=== PATIENT | female | born 1990 | race Caucasian/White ===

== ENCOUNTER 2018-04-05 12:58 | Emergency (ER) | payer BC ==
[~2018-04-05] VITALS: Ht 170.2 cm; Wt 63.6 kg
[2018-04-05 13:06] VITALS: TEMP 99.3
[2018-04-05] MEDS ORDERED: MALARONE 250 MG1 TAB PO (13:18)
[2018-04-05 14:13] VITALS: BP 122/79; PULSE 89
== END 2018-04-05 14:14 | disposition home or self-care (01) ==
LOC: COL.ER 12:58
DX: S93.402A Sprain of unspecified ligament of left ankle, initial encounter (principal); X50.1XXA Overexertion from prolonged static or awkward postures, initial encounter

== ENCOUNTER → 2022-11-05 | Outpatient (CLI) | payer BC ==
[~2022-11-05] MED LIST: MALARONE 250 MG1 TAB PO
== END ==
LOC: COL.RAD 09:22
DX: R74.01 Elevation of levels of liver transaminase levels (principal)